=== PATIENT | female | born 1965 | race Caucasian/White ===

== ENCOUNTER 2018-07-07 16:05 | Emergency (ER) | payer BC ==
[2018-07-07 16:09] VITALS: BP 143/81
--- NOTE | 2018-07-07 16:25 | ER Document Report ---
ED Medical Screen (RME) - General Chief Complaint: Laceration Stated Complaint: FINGER LACERATION Time Seen by Provider: 07/07/18 16:20 Mode of Arrival: Ambulatory Information source: Patient Notes: 52-year-old female presents to ED with laceration to the right middle finger. She states she was cleaning the oven without gloves when she sliced her finger on the under the abdomen. 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 Bleeding is under control at this time. I have greeted and performed a rapid initial assessment of this patient. A comprehensive ED assessment and evaluation of the patient, analysis of test results and completion of medical decision making process will be conducted by an additional ED providers. Dictation of this chart was performed using voice recognition software; therefore, there may be some unintended grammatical errors. TRAVEL OUTSIDE OF THE [place] IN LAST 30 DAYS: No - Related Data Allergies/Adverse Reactions: No Known Allergies Allergy (Verified 07/07/18 16:06) Physical Exam - Vital signs Vitals: Temp Pulse Resp BP Pulse Ox 98 F 59 L 18 143/81 H 96 07/07/18 16:06 07/07/18 16:06 07/07/18 16:06 07/07/18 16:06 07/07/18 16:06 Course - Vital Signs Vital signs: Temp Pulse Resp BP Pulse Ox 98 F 59 L 18 143/81 H 96 07/07/18 16:06 07/07/18 16:06 07/07/18 16:06 07/07/18 16:06 07/07/18 16:06
[2018-07-07] MEDS ORDERED: LIDOCAINE 1% INJ-PF (10 MG/ML) 30 ML SDV INJ ONE (17:20)
--- NOTE | 2018-07-07 17:23 | ER Document Report ---
ED Wound - General Chief Complaint: Laceration Stated Complaint: FINGER LACERATION Time Seen by Provider: 07/07/18 16:20 Mode of Arrival: Ambulatory Information source: Patient TRAVEL OUTSIDE OF THE [place] IN LAST 30 DAYS: No - HPI Patient complains to provider of: Laceration Notes: Patient here with complaints of laceration to the dorsal aspect of her right middle finger, middle phalanx. She was cleaning underneath the stove when she cut the finger on the sharp edge of the oven. Tetanus is up-to-date. Bleeding is controlled. She denies any numbness, tingling, weakness. No redness or drainage. No chest pain or shortness of breath. No nausea, vomiting, diarrhea. Pain is mild, constant, worse with movement, better with rest. No other injuries or complaints. - Related Data Allergies/Adverse Reactions: No Known Allergies Allergy (Verified 07/07/18 16:06) Past Medical History - General Information source: Patient - Social History Smoking Status: Never Smoker Family History: Reviewed & Not Pertinent Patient has suicidal ideation: No Patient has homicidal ideation: No Renal/ Medical History: Denies: Hx Peritoneal Dialysis Review of Systems - Review of Systems -: Yes All other systems reviewed and negative Physical Exam - Vital signs Vitals: Temp Pulse Resp BP Pulse Ox 98 F 59 L 18 143/81 H 96 07/07/18 16:06 07/07/18 16:06 07/07/18 16:06 07/07/18 16:06 07/07/18 16:06 - Notes Notes: GENERAL: alert, cooperative, nontoxic, no distress. HEAD: normocephalic, atraumatic EYES: conjunctiva pink without discharge, no external redness or swelling. EARS: no external swelling, no external redness NOSE: atraumatic, no external swelling MOUTH/THROAT: mucous membranes moist and pink NECK: soft, supple, full range of motion, no meningismus. CHEST: no distress, lungs clear and equal throughout. No wheezing, rales, rhonchi. CARDIAC: regular rate and rhythm, no murmur, normal capillary refill, normal pulses. BACK: full range of motion, no CVA tenderness. EXTREMITIES: full range of motion of all extremities. No redness, no swelling. Avulsion/flap laceration to the dorsal aspect of the right middle finger, middle phalanx. No active bleeding. No foreign body. Normal pulse and sensation distally. NEURO: alert and oriented 3, no focal deficits, full range of motion of all extremities. PYSCH: appropriate mood, affect. Patient is cooperative. SKIN: pink, warm, dry, no rash. Course - Re-evaluation Re-evalutation: 07/07/18 17:48 Patient nontoxic-appearing with stable vitals. Patient with complaints of laceration to the right middle finger. She was cleaning under a stove when she excellently cut it on a sharp edge. Tetanus up-to-date. She noted to have a flap laceration with skin still attached. Was able to suture the skin closed creating a biological bandage. Patient tolerated this well. She will be discharged home with wound care instructions. Follow-up in 10 to 12 days for suture removal, sooner for worsening pain, fever, redness, drainage, any further concerns. The patient's emergency department workup and current diagnosis were explained to the patient and or family. Follow-up instructions were provided. Medications if prescribed were discussed. Instructions for when to return to the emergency department including specific worrisome symptoms were discussed with the patient and/or family. - Vital Signs Vital signs: Temp Pulse Resp BP Pulse Ox 98 F 59 L 18 143/81 H 96 07/07/18 16:06 07/07/18 16:06 07/07/18 16:06 07/07/18 16:06 07/07/18 16:06 Procedures - Laceration/Wound Repair RIGHT MIDDLE FINGER Wound length (cm): 3 Wound's Depth, Shape: Superficial, Irregular, Flap Laceration pre-procedure: Sterile PPE donned, Sterile drapes applied, Shur-Clens applied Anesthetic type: 1% Lidocaine Wound explored: Clean, No foreign body removed Wound Repaired With: Sutures Suture Size/Type: 5:0, Ethilon Number of Sutures: 7 Layer Closure?: No Post-procedure NV exam normal: Yes Complications: No Discharge - Discharge Clinical Impression: Laceration of right middle finger w/o foreign body w/o damage to nail Qualifiers: Encounter type: initial encounter Qualified Code(s): S61.212A - Laceration without foreign body of right middle finger without damage to nail, initial encounter Condition: Stable Disposition: HOME, SELF-CARE Instructions: Antibiotic Ointment Protection ([facility]), Laceration Care ([facility]), Soap Cleansing ([facility]) Additional Instructions: Clean wound twice a day with soap and water. Apply thin layer of antibiotic ointment. Follow-up in 10 to 12 days for suture removal, sooner for worsening pain, fever, redness, drainage, any further concerns. Forms: Elevated Blood Pressure, Smoking Cessation Education Referrals: [facility] [Provider Group] - Follow up as needed
== END 2018-07-07 18:10 | disposition home or self-care (01) ==
LOC: ER 16:05
PROC: 0HQFXZZ Repair Right Hand Skin, External Approach (ICD-10-PCS; principal; 2018-07-07)
DX: S61.212A Laceration without foreign body of right middle finger without damage to nail, initial encounter (principal); W45.8XXA Other foreign body or object entering through skin, initial encounter
CPT/HCPCS: 99282